=== PATIENT | female | born 1940 | race African-American/Black ===

== ENCOUNTER 2016-10-28 14:17 | Inpatient (IN) ==
[2016-10-28] MEDS ORDERED: SODIUM CHLORIDE 0.9% 1,000 ML IV STA (15:00)
[2016-10-28] MEDS ORDERED: ONDANSETRON 4 MG/2 ML VIAL IV STA (15:00)
[2016-10-28] MEDS ORDERED: fentaNYL 100 MCG/2 ML VIAL IV STA (15:01)
--- NOTE | 2016-10-28 15:24 | Emergency Department Note ---
Toro Vela Rolonda, am scribing for, and in the presence of, Benjie Justice MD 15: 01. Reshma Vela James D, MD, personally performed the services described in this documentation, ascribed by Judit Engel in my presence, and it is both accurate and complete 523 . Arrival - Arrival Chief Complaint: Abdominal / Flank Pain Stated Complaint: abd pain,vomitting ED Nursing Triage Note: c/o abd pain and n/v for over a week. Patient states that she is unable to eat. Mode of Arrival: Ambulatory Limitations: No Limitations Source: Patient, Old Records Reviewed, RN Notes Reviewed Time Seen by Provider: 10/28/16 14:55 - History of Present Illness HPI Narrative: Pt is a 75 y/o female who presents to the ED with c/o right sided abdomen pain with an onset of weeks ago. Pt has PMHx of HTN. Pt states that she cannot eat or drink. She states that everything she tries to eat gets lodged in her mid abdomen and she vomits. Pt states that her mouth is dry and that she has only been eating chicken broth which she vomits as well. No other complaint/pain in ED. Onset (ago): week(s) Consistency: constant Severity: mild, moderate Severity scale (1-10): 4 Allergies/Adverse Reactions: Allergies Allergy/AdvReac Type Severity Reaction Status Date / Time aspirin Allergy RASH Verified 10/28/16 14:35 codeine Allergy Difficulty Verified 10/28/16 14:35 Breathing Sulfa (Sulfonamide Allergy Difficulty Verified 10/28/16 14:35 Antibiotics) Breathing Home Medications: Home Medications Medication Instructions Recorded Confirmed Type Gabapentin Cap/Tab [Neurontin 300 mg PO DAILY 01/17/15 03/06/15 History Cap/Tab] Lisinopril [Zestril] 40 mg PO DAILY 01/17/15 03/06/15 History Pantoprazole Tab [Protonix Tab] 40 mg PO DAILY 01/17/15 03/06/15 History Promethazine Tab [Phenergan Tab] 25 mg PO Q6H 01/17/15 03/06/15 History Ranitidine Tab [Zantac Tab] 150 mg PO BID 01/17/15 03/06/15 History amLODIPine [Norvasc] 10 mg PO DAILY 01/17/15 03/06/15 History Review of System - Review of System 12 point system: reviewed and no additional remarkable complaints except as stated - Review of System Constitutional: Absent: chills Eyes: Absent: discharge Head/Ears/Nose/Throat: Absent: earache Respiratory: Absent: cough Cardiovascular: Absent: chest pain Gastrointestinal: Present: abdominal pain, vomiting Genitourinary female: Absent: dysuria Musculoskeletal: Absent: arm pain Skin: Absent: rash Neurological: Absent: headache Psychiatric: Absent: anxiety Endocrine: Absent: cold intolerance Hematological/Lymphatic: Absent: easy bleeding Allergic/Immunologic: Absent: facial swelling Medical,Surgical,& Family Hx - Medical History Cardio: History of: Hypertension Psychological: History of: Anxiety Disorders Neurology: No history of: Seizures Genitourinary: History of: Bladder Problem, Recurring Urinary Tract Infections Gastrointestinal: History of: GERD, GI Problems (SPHINCTER OF ODDI DYSFUNCTION) No history of: Hepatitis, Liver Problems Musculoskeletal: History of: Back/Neck Problems (LOWER BACK), Musculoskeletal Problems (ARTHRITIS) Hematology: No history of: Anemia Other: No history of: Anesthesia Reactions, Cancer - Surgical History Cardiac Surgeries: Patient Denies: Cardiac Catheterization HEENT Surgeries: Surgical HX of: Tonsilectomy & Adenoidectomy Abdominal Surgeries: Surgical HX of: Cholecystectomy, EGD Reproductive Surgeries: Surgical HX of;: Genitourinary Surgery (BLADDER TACK), Hysterectomy Orthopedic Surgeries: Surgical HX of;: Orthopedic Surgery (BACK SURGERY X 2), Total Knee Replacement (RIGHT) Patient denies;: Total Hip Replacement - Family History Family History: Denies;: Family Cancer - Social History Smoking Status: Never smoker Frequency of Alcohol Use: None Type of Drug Use: None Exam Vital Signs: Vital Signs Temperature 98.9 F 10/28/16 14:46 Pulse Rate 79 10/28/16 14:46 Respiratory Rate 18 10/28/16 14:46 Blood Pressure 197/126 10/28/16 14:46 O2 Sat by Pulse Oximetry 96 10/28/16 14:32 GENERAL: This is a well-nourished well-developed white female in no apparent distress. VITAL SIGNS: Reviewed HEENT: Head is atraumatic and normocephalic. Pupils are equal round react to light. Extraocular movements are intact. Oropharynx is benign with dry mucous membranes. NECK: Neck is soft and supple without tenderness. There are no masses. There is no lymphadenopathy. LUNGS: Lungs are clear to auscultation. Chest rises symmetrically. There is no chest wall tenderness. CV: Heart is regular rate and rhythm without murmurs rubs or gallops. ABDOMEN: Abdomen is soft, nontender to palpation. There are no abdominal abnormal masses palpated. There is no organomegaly. Bowel sounds are present and active. SKIN: Skin is warm and dry. No rash. EXTREMITIES: Patient has full range of motion without tenderness. There is no pedal edema. NEUROLOGIC: Awake alert and oriented 4. Cranial nerves II through XII are grossly intact. Motor is 5 over 5 in all extremities bilaterally. Course - Consultations Consultation #1: Discussed with hospitalist. Patient will be admitted to their service. Time: 16:00 Results - Labs CBC & BMP: 10/28/16 15:16 10/28/16 15:16 Lab Results: I have reviewed the patients labs - Diagnostic Findings Procedure: Abdominal x-ray: image reviewed by me (Nonspecific gas pattern, no free air.), Chest x-ray: image reviewed by me (No infiltrates, no pleural effusions.) Disposition Clinical Impression: Distal esophageal dysphagia Case discussed with: patient, patient's family Disposition: Still a Patient Condition: Stable
[2016-10-28 15:25] LABS: Basophils % 0.2 % (0.0-0.8); Eosinophils # 0.4 10*3/uL (0.0-0.87); Eosinophils % 5.6 % (0.00-10.9); Hematocrit 43.2 VOL% (35.7-47.0); Immature Granulocytes % 0.3 %; Immature Granulocytes Absolute 0.02 #; Lymphocytes # 1.9 10*3/uL (1.4-4.0); Lymphocytes % 31.1 % (21.3-54.2); Mean Corpuscular HGB Conc 34.7 GM/DL (32-36); Mean Corpuscular Hemoglobin 30 PG (27-34); Mean Platelet Volume 10.7 FL (9.6-12.0); Monocytes # 0.5 10*3/uL (0.11-0.8); Monocytes % 7.9 % (1.7-12.7); Neutrophils # 3.4 10*3/uL (1.4-7.4); Neutrophils % 54.9 % (38.7-73.9); Platelet Count 182 T/CUMM (130-400); Red Blood Count 5.08 MC/CUMM (3.8-5.5); Red Cell Distribution Width 13.4 % (9.3-17.3); White Blood Count 6.2 T/CUMM (4-12)
[2016-10-28] MEDS ORDERED: ONDANSETRON 4 MG/2 ML VIAL ONE (15:29)
[2016-10-28] MEDS ORDERED: fentaNYL 100 MCG/2 ML VIAL ONE (15:30)
--- NOTE | 2016-10-28 15:30 | XRay Report ---
EXAM: XR abdomen 2V CLINICAL INDICATION: Abdominal Pain COMPARISON: None Findings: No gastric distention. [No abnormally dilated small bowel loops are identified to suggest obstruction. No free intraperitoneal air.] Cholecystectomy. Visceral shadows are normal. No abnormal focal soft tissue masses or calcific densities identified in the abdomen or pelvis. IMPRESSION: No acute radiographic abnormality in the abdomen. PROCEDURE INTERPRETED AT [facility] DEPARTMENT OF RADIOLOGY Final Report Signed by: Leoncio Choudhary
--- NOTE | 2016-10-28 15:31 | XRay Report ---
Portable chest October 28, 2016 at 1522 hours Indication: Diffuse pain Comparison: Not available Findings: Cardiomediastinal contours are normal. Lungs are clear bilaterally. No acute osseous abnormalities. Visualized upper abdomen demonstrates no acute pathology. Impression: Normal chest PROCEDURE INTERPRETED AT [facility] DEPARTMENT OF RADIOLOGY Final Report Signed by: Leoncio Choudhary
[2016-10-28 15:56] LABS: Albumin 3.9 G/DL (3.4-5.0); Bilirubin,Total 0.5 MG/DL (0.2-1.0); Calcium 10.1 MG/DL (8.5-10.1); Osmolality,Calculated 280.3 MOS/KG (273-304); Potassium 4.3 MMOL/L (3.5-5.1); Total Protein 8.7 G/DL (6.4-8.3)
--- NOTE | 2016-10-28 16:44 | Hospitalist History & Physical ---
Assessment and Plan - Time spent with patient Time spent with patient: Greater than 30 minutes (1) Dysphagia Status: Acute Assessment and plan: 10/28/16 Admit -start IV hydration -PRN antiemetics -Consult GI -monitor repeat labs -will discuss with Dr Kapadia for further recommendations of care Current Visit: No (2) Nausea vomiting and diarrhea Status: Acute Assessment and plan: 10/28/16 Admit- PRN anti-emetics and monitor Current Visit: Yes History of Present Illness Chief complaint: N/V/D and abdominal pain History of present illness: Ms. Gant is a 75 year old black female w/PMHx of hypertension, anxiety, recurrent UTI, GERD, Chronic back/neck pain, arthritis, and Stricture dilatation presented to the ED for further evaluation of epigastric abdominal pain, nausea/vomiting x 2-3 days and diarrhea that started last night. She reports that she hasn't been able to take any solids foods for about 10 days and now liquids are causing her to become very nauseated with associated vomiting. She denies any recent treatments that required antibiotic therapy. She denies any bright red blood or dark tarry stools. Denies any bright red bleeding in vomitus. Denies shortness of breath, chest pain, fever or chills. IN ED: ABD xray: nothing acute. CXR; normal chest. LABS significant: AST 50, Glucose 150. H&H: stable and Electrolytes within normal range. Hospital Services consulted for further evaluation. She denies smoking, alcohol use or illicit drug use. Noted on 03/09/15 Dr Haynes performed an EGD: with noted moderate hiatal hernia, gastroesophageal reflux disease and esophageal stricture treated with dilatation. PCP: Dr Lopez (in [place]) GI: Dr Haynes performed EGD last admission 03/09/16 Pain Mangement: Dr Sanz Home Medications Medication Instructions Recorded Confirmed Type Gabapentin Cap/Tab [Neurontin 300 mg PO DAILY 01/17/15 03/06/15 History Cap/Tab] Lisinopril [Zestril] 40 mg PO DAILY 01/17/15 03/06/15 History Pantoprazole Tab [Protonix Tab] 40 mg PO DAILY 01/17/15 03/06/15 History Promethazine Tab [Phenergan Tab] 25 mg PO Q6H 01/17/15 03/06/15 History Ranitidine Tab [Zantac Tab] 150 mg PO BID 01/17/15 03/06/15 History amLODIPine [Norvasc] 10 mg PO DAILY 01/17/15 03/06/15 History Allergies Allergy/AdvReac Type Severity Reaction Status Date / Time aspirin Allergy RASH Verified 10/28/16 14:35 codeine Allergy Difficulty Verified 10/28/16 14:35 Breathing Sulfa (Sulfonamide Allergy Difficulty Verified 10/28/16 14:35 Antibiotics) Breathing Medical,Surgical,& Family Hx - Medical History Cardio: History of: Hypertension Psychological: History of: Anxiety Disorders Neurology: No history of: Seizures Genitourinary: History of: Bladder Problem, Recurring Urinary Tract Infections Gastrointestinal: History of: GERD, GI Problems (SPHINCTER OF ODDI DYSFUNCTION) No history of: Hepatitis, Liver Problems Musculoskeletal: History of: Back/Neck Problems (LOWER BACK), Musculoskeletal Problems (ARTHRITIS) Hematology: No history of: Anemia Other: No history of: Anesthesia Reactions, Cancer - Surgical History Cardiac Surgeries: Patient Denies: Cardiac Catheterization HEENT Surgeries: Surgical HX of: Tonsilectomy & Adenoidectomy Abdominal Surgeries: Surgical HX of: Cholecystectomy, EGD (with stricture dilatation) Reproductive Surgeries: Surgical HX of;: Genitourinary Surgery (BLADDER TACK), Hysterectomy Orthopedic Surgeries: Surgical HX of;: Orthopedic Surgery (BACK SURGERY X 2), Total Knee Replacement (RIGHT) Patient denies;: Total Hip Replacement - Family History Family History: Reports;: Family Diabetes (father), Family Heart Disease ( father and sister - [place]), Family Hypertension (Dad and mother) Denies;: Family Cancer - Social History Smoking Status: Never smoker Frequency of Alcohol Use: None Type of Drug Use: None Marital Status: Single Lives With:: Grandson lives with her Functional capacity: uses cane/walker 12 point system: reviewed and no additional remarkable complaints except as stated - Constitutional Constitutional: Present: weakness. Absent: anorexia, fever(s) - EENT Nose, mouth and throat: Present: dysphagia. Absent: headache(s), nasal congestion - Cardiovascular Cardiovascular: Absent: chest pain at rest, chest pain with activity, edema - Respiratory Respiratory: Absent: dyspnea, wheezing - Gastrointestinal Gastrointestinal: Present: abdominal pain, diarrhea, dysphagia, nausea, vomiting. Absent: coffee ground emesis, constipation, hematemesis - Genitourinary Genitourinary: Absent: difficulty urinating, dysuria, flank pain, hematuria - Psychiatric Psychiatric: Absent: confusion Exam - Constitutional Vitals: Period Temp Pulse Resp BP Sys/Jose Pulse Ox Last 24 Hr 98.9 F-98.9 F 79-79 18-18 197-197/126-126 96 General appearance: normal weight, no acute distress - Head Head exam: Present: normal inspection - Eye Eye exam: Present: EOMI Pupils: Present: YANNA - Neck Neck exam: Present: normal inspection. Absent: thyromegaly - Respiratory Respiratory exam: Present: clear to auscultation bilaterally. Absent: stridor, wheezes - Cardiovascular Cardiovascular exam: Present: regular rate and rhythm - GI/Abdominal GI/Abdominal exam: Present: normal bowel sounds, soft. Absent: rebound - Extremities Exam Extremities exam: Present: normal inspection, full ROM. Absent: edema - Neurological Exam Neurological exam: Present: alert, oriented X3, CN II-XII intact - Psychiatric Psychiatric exam: Present: normal affect, normal mood. Absent: agitated, anxious - Skin Skin exam: Present: normal color, warm, dry Results - Labs CBC & BMP: 10/28/16 15:16 10/28/16 15:16 Lab Results: I have reviewed the past 24 hour labs
[2016-10-28 16:48] LABS: Apearance,Urine CLEAR (Clear); Bacteria,Urine Occasional /HPF (Few); Bilirubin,Urine Negative (Negative); Blood, Urine Negative (Negative); Glucose,Urine (UA) Negative (Negative); Ketones,Urine Negative (Negative); Nitrite,Urine Negative (Negative); Protein,Urine Negative; RBC,Urine 2 /HPF (0-4); Urine Color Straw (Yellow); Urine Specific Gravity 1.004 (1.001-1.035); Urine Urobilinogen < 2.0 EU/DL (0.2-1.0); WBC,Urine 5 /HPF (0-6)
[2016-10-28] MEDS ORDERED: ACETAMINOPHEN 325 MG TABLET PO PRN (17:53)
[2016-10-28] MEDS ORDERED: PROMETHAZINE 25 MG/1 ML VIAL IM PRN (17:53)
[2016-10-28] MEDS: SODIUM CHLORIDE 0.9% 1,000 ML IV SCH (18:26)
[2016-10-28] MEDS: hydrALAZINE 20 MG/1 ML VIAL IV PRN (18:29)
[2016-10-28] MEDS ORDERED: ENALAPRIL 2.5 MG/2 ML VIAL IV PRN (19:12)
[2016-10-28] MEDS ORDERED: cloNIDine 0.3 MG/24 HR PATCH TRANSDERM SCH (19:30)
[2016-10-28] MEDS: HYDROmorphone 2 MG/1 ML VIAL IV PRN (19:45)
[2016-10-28] MEDS: ONDANSETRON 4 MG/2 ML VIAL IV PRN (19:45)
[2016-10-29] MEDS: SODIUM CHLORIDE 0.9% 1,000 ML IV SCH ×3 (02:46→18:06)
[2016-10-29] MEDS: ONDANSETRON 4 MG/2 ML VIAL IV PRN ×3 (02:46→19:21)
[2016-10-29] MEDS: HYDROmorphone 2 MG/1 ML VIAL IV PRN ×2 (02:46→08:43)
[2016-10-29] MEDS: hydrALAZINE 20 MG/1 ML VIAL IV PRN (06:37)
[2016-10-29 07:29] LABS: Basophils % 0.3 % (0.0-0.8); Eosinophils # 0.2 10*3/uL (0.0-0.87); Eosinophils % 3.2 % (0.00-10.9); Hematocrit 42.8 VOL% (35.7-47.0); Hemoglobin 14.2 GM/DL (12.0-16.0); Immature Granulocytes % 0.2 %; Immature Granulocytes Absolute 0.01 #; Lymphocytes # 1.6 10*3/uL (1.4-4.0); Lymphocytes % 25.7 % (21.3-54.2); Mean Corpuscular HGB Conc 33.2 GM/DL (32-36); Mean Corpuscular Hemoglobin 29 PG (27-34); Mean Corpuscular Volume 86.5 FL (87-102); Mean Platelet Volume 10.9 FL (9.6-12.0); Monocytes # 0.6 10*3/uL (0.11-0.8); Monocytes % 9.4 % (1.7-12.7); Neutrophils # 3.8 10*3/uL (1.4-7.4); Neutrophils % 61.2 % (38.7-73.9); Platelet Count 222 T/CUMM (130-400); Red Blood Count 4.95 MC/CUMM (3.8-5.5); Red Cell Distribution Width 13.7 % (9.3-17.3); White Blood Count 6.3 T/CUMM (4-12)
[2016-10-29 08:07] LABS: Calcium 9.4 MG/DL (8.5-10.1); Magnesium 1.9 MG/DL (1.8-2.4); Potassium 2.7 MMOL/L (3.5-5.1)
[2016-10-29] MEDS: PANTOPRAZOLE 40 MG VIAL IV SCH (08:43)
--- NOTE | 2016-10-29 10:05 | Gastrointestinal Consult Note ---
Assessment and Plan (1) Dysphagia Status: Acute Assessment and plan: 10/29-complaints of epigastric abdominal pain with nausea and vomiting worsening of the last several days with history of dysphagia and esophageal stricture in the past. Patient recalls similar presentation to her prior episodes of dysphagia in the past. EGD in 2016 noted with GERD and esophageal dilation. Tentative plan for EGD tomorrow to further evaluate. Plan an addendum to follow by Dr. Haynes. Current Visit: No History of Present Illness Chief complaint: Dysphagia, nausea vomiting History of present illness: Ms. Gant is a 75 year old female who was admitted to the hospital on yesterday with onset of nausea, vomiting, diarrhea and abdominal pain. Patient has a prior history of hypertension, GERD, chronic pain and anxiety. Patient is a fairly good historian therefore information obtained from patient interview as well as chart review. Patient was admitted on yesterday with complaints of dysphagia which has worsened over the last several days. She also states that she has had onset of nausea with vomiting/regurgitation with eating. She states that at this time nothing wall go down when she swallows therefore this is caused her to have these recent episodes of nausea vomiting. She also states that she did have some diarrhea which started a couple of days ago however this is improved at this time. She denies any melena or hematochezia. She denies any coffee-ground emesis or hematemesis. She denies any fever or chills. She denies any recent weight loss. She states that approximately a month ago her symptoms did begin to worsen and she was sent to see Dr. Jewell in [place] for this however once he realized that she is a patient of Dr. Haynes, an appointment was made for November [address] Haynes. Patient has a prior history of hiatal hernia, GERD and esophageal stricture with dilation with the most recent EGD done in February 2015. Patient states that the symptoms feel very similar to her prior histories of dysphagia in the past she has had good results from her dilations. She is also noted to have a history of sphincter of Yandel dysfunction with ERCP in the past with normal LFTs. Abdominal x-ray on admission showed no acute findings. She denies any NSAID use. Home Medications Medication Instructions Recorded Confirmed Type Lisinopril [Zestril] 40 mg PO DAILY 01/17/15 10/28/16 History Promethazine Tab [Phenergan Tab] 25 mg PO Q6H 01/17/15 10/28/16 History Ranitidine Tab [Zantac Tab] 150 mg PO BID 01/17/15 10/28/16 History amLODIPine [Norvasc] 10 mg PO DAILY 01/17/15 10/28/16 History Carvedilol [Coreg] 3.125 mg PO BID 10/28/16 10/28/16 History Oxybutynin Xl [Ditropan Xl] 15 mg PO DAILY 10/28/16 10/28/16 History Potassium Chloride 40 meq PO BID 10/28/16 10/28/16 History Tizanidine HCl 4 mg PO BID PRN 10/28/16 10/28/16 History Allergies Allergy/AdvReac Type Severity Reaction Status Date / Time aspirin Allergy RASH Verified 10/28/16 14:35 codeine Allergy Difficulty Verified 10/28/16 14:35 Breathing Sulfa (Sulfonamide Allergy Difficulty Verified 10/28/16 14:35 Antibiotics) Breathing Medical,Surgical,& Family Hx - Medical History Cardio: History of: Hypertension Psychological: History of: Anxiety Disorders Neurology: No history of: Seizures Genitourinary: History of: Bladder Problem, Recurring Urinary Tract Infections Gastrointestinal: History of: GERD, GI Problems (SPHINCTER OF ODDI DYSFUNCTION) No history of: Hepatitis, Liver Problems Musculoskeletal: History of: Back/Neck Problems (LOWER BACK), Musculoskeletal Problems (ARTHRITIS) Hematology: No history of: Anemia Other: No history of: Anesthesia Reactions, Cancer - Surgical History Cardiac Surgeries: Patient Denies: Cardiac Catheterization HEENT Surgeries: Surgical HX of: Tonsilectomy & Adenoidectomy Abdominal Surgeries: Surgical HX of: Cholecystectomy, EGD (with stricture dilatation) Reproductive Surgeries: Surgical HX of;: Genitourinary Surgery (BLADDER TACK), Hysterectomy Orthopedic Surgeries: Surgical HX of;: Orthopedic Surgery (BACK SURGERY X 2), Total Knee Replacement (RIGHT) Patient denies;: Total Hip Replacement - Family History Family History: Reports;: Family Diabetes (father), Family Heart Disease ( father and sister - [place]), Family Hypertension (Dad and mother) Denies;: Family Anesthesia Reaction, Family Cancer, Family Hematology, Family Psychiatric Problems, Family Stroke, Additional Family History - Social History Smoking Status: Never smoker Frequency of Alcohol Use: None Type of Drug Use: None 12 point system: reviewed and no additional remarkable complaints except as stated - Constitutional Constitutional: Present: as per HPI - EENT Eyes: Present: as per HPI Ears: Present: as per HPI Nose, mouth and throat: Present: as per HPI, dysphagia - Cardiovascular Cardiovascular: Present: as per HPI - Respiratory Respiratory: Present: as per HPI - Gastrointestinal Gastrointestinal: Present: as per HPI, diarrhea, nausea, vomiting - Genitourinary Genitourinary: Present: as per HPI - Musculoskeletal Musculoskeletal: Present: as per HPI - Neurological Neurological: Present: as per HPI - Psychiatric Psychiatric: Present: as per HPI - Endocrine Endocrine: Present: as per HPI - Hematologic/Lymphatic Hematologic/Lymphatic: Present: as per HPI Exam - Constitutional Vitals: Period Temp Pulse Resp BP Sys/Jose Pulse Ox Last 24 Hr 98.0 F-99.1 F 69-79 18-20 161-208/58-126 91-96 General appearance: normal weight, no acute distress - Head Head exam: Present: normal inspection, normocephalic - Eye Eye exam: Present: other (Lids and conjunctive are unremarkable). Absent: scleral icterus - ENT ENT exam: Present: normal exam, normal oropharynx - Neck Neck exam: Present: normal inspection - Respiratory Respiratory exam: Present: clear to auscultation bilaterally. Absent: rales, rhonchi, wheezes - Cardiovascular Cardiovascular exam: Present: regular rate and rhythm. Absent: diastolic murmur , JVD, systolic murmur - GI/Abdominal GI/Abdominal exam: Present: normal bowel sounds, soft. Absent: ascites, distended, mass, organomegaly, tenderness - Extremities Exam Extremities exam: Present: normal inspection, full ROM - Back Exam Back exam: Present: normal inspection - Neurological Exam Neurological exam: Present: alert, oriented X3 - Psychiatric Psychiatric exam: Present: normal affect, normal mood - Skin Skin exam: Present: normal color, warm, dry Results - Labs CBC & BMP: 10/29/16 06:43 10/29/16 06:43 Lab Results: I have reviewed the past 24 hour labs
--- NOTE | 2016-10-29 10:26 | Hospitalist Progress Note ---
Assessment and Plan - Time spent with patient Time spent with patient: Less than 30 minutes (1) Hypertension Status: Acute Assessment and plan: 75-year-old -[place] female with history of hypertension, GERD, chronic pain, and anxiety admitted by the hospitalist service on 10/28/2016 with nausea, vomiting, diarrhea, and dysphagia along with hypertensive urgency. Dr. Smith will see and examine patient and further recommendations to follow. Hypertensive urgency--blood pressure still elevated at 185/72. She is currently on clonidine, enalapril, and hydralazine. These are all IV medications since patient cannot tolerate swallowing her pills due to nausea and dysphasia at this time. What she can tolerate swallowing will restart her home medications. Chronic pain--patient states she sees Dr. Sanz he her home medicines have not been restarted. I do not see anything on her home medications that are for chronic pain. She does have IV Dilaudid as needed for pain. NVD/dysphagia--GI has been consulted and have seen the patient. She has seen Dr. Haynes in the past and her most recent EGD was done in February 2015. She had an esophageal stricture with dilation done at that time. Current Visit: Yes (2) GERD (gastroesophageal reflux disease) Status: Acute Current Visit: Yes (3) Chronic pain Status: Acute Current Visit: Yes (4) History of anxiety Status: Acute Current Visit: Yes (5) Dysphagia Status: Acute Current Visit: No (6) Nausea vomiting and diarrhea Status: Acute Current Visit: Yes Hospitalist: Subjective Interval history: Ms. Gant has no complaints this morning other than she is not received her normal medications from her chronic pain. She is having some nausea but no vomiting and epigastric pain with palpation. Exam - Constitutional Vitals: Period Temp Pulse Resp BP Sys/Jose Pulse Ox Last 24 Hr 98.0 F-99.1 F 69-79 18-20 161-208/58-126 91-96 Exam: Constitutional System: Now distress. No tremulousness. Head: Normocephalic, atraumatic. Ears, Nose and Throat System: No evidence of Otitis or Mastoiditis. No epistaxis or discharge Eyes System: Pupils equal, round, and reactive. Extraocular muscles intact. Neck: Supple, without adenopathy, No jugular venous distention. No thyromegaly, neck mass, or prior surgery apparent. Respiratory System: Chest clear to auscultation. Cardiovascular System: Heart with regular rate and rhythm. No murmur. GI System: Abdomen soft, mildly tender epigastric region. Normo active bowel sounds present. Musculoskeletal System: limbs with no pedal edema. Diminished distal pulses. Neurological System: No discernable sensory deficit. No aphasia Psychiatric System: Conversation is rational Results - Labs CBC & BMP: 10/29/16 06:43 10/29/16 06:43 Lab Results: I have reviewed the past 24 hour labs
[2016-10-29] MEDS: POTASSIUM CHLORIDE RIDER 10 MEQ in PREMIX 1 EACH IV SCH ×5 (12:34→23:27)
--- NOTE | 2016-10-29 16:01 | Pain Management Consult Note ---
Assessment and Plan (1) Lumbar spondylosis Status: Acute Assessment and plan: Patient is stable as far as her lumbar spondylosis is concerned. I will go ahead and restart her Percocet 10 3 times per day as needed for pain Current Visit: Yes History of Present Illness Chief complaint: Abdominal pain right hip and right leg pain History of present illness: Ms. Gant is a 75 year old female Patient is well-known to me with history of lumbar spondylosis and chronic use of Percocet 10 3 times per day for pain. Patient is admitted for epigastric pain and workup is being done. I have been requested to evaluate to see if we can restart her Percocet back Home Medications Medication Instructions Recorded Confirmed Type Lisinopril [Zestril] 40 mg PO DAILY 01/17/15 10/28/16 History Promethazine Tab [Phenergan Tab] 25 mg PO Q6H 01/17/15 10/28/16 History Ranitidine Tab [Zantac Tab] 150 mg PO BID 01/17/15 10/28/16 History amLODIPine [Norvasc] 10 mg PO DAILY 01/17/15 10/28/16 History Carvedilol [Coreg] 3.125 mg PO BID 10/28/16 10/28/16 History Oxybutynin Xl [Ditropan Xl] 15 mg PO DAILY 10/28/16 10/28/16 History Potassium Chloride 40 meq PO BID 10/28/16 10/28/16 History Tizanidine HCl 4 mg PO BID PRN 10/28/16 10/28/16 History Allergies Allergy/AdvReac Type Severity Reaction Status Date / Time aspirin Allergy RASH Verified 10/28/16 14:35 codeine Allergy Difficulty Verified 10/28/16 14:35 Breathing Sulfa (Sulfonamide Allergy Difficulty Verified 10/28/16 14:35 Antibiotics) Breathing Medical,Surgical,& Family Hx - Medical History Cardio: History of: Hypertension Psychological: History of: Anxiety Disorders Neurology: No history of: Seizures Genitourinary: History of: Bladder Problem, Recurring Urinary Tract Infections Gastrointestinal: History of: GERD, GI Problems (SPHINCTER OF ODDI DYSFUNCTION) No history of: Hepatitis, Liver Problems Musculoskeletal: History of: Back/Neck Problems (LOWER BACK), Musculoskeletal Problems (ARTHRITIS) Hematology: No history of: Anemia Other: No history of: Anesthesia Reactions, Cancer - Surgical History Cardiac Surgeries: Patient Denies: Cardiac Catheterization HEENT Surgeries: Surgical HX of: Tonsilectomy & Adenoidectomy Abdominal Surgeries: Surgical HX of: Cholecystectomy, EGD (with stricture dilatation) Reproductive Surgeries: Surgical HX of;: Genitourinary Surgery (BLADDER TACK), Hysterectomy Orthopedic Surgeries: Surgical HX of;: Orthopedic Surgery (BACK SURGERY X 2), Total Knee Replacement (RIGHT) Patient denies;: Total Hip Replacement - Family History Family History: Reports;: Family Diabetes (father), Family Heart Disease ( father and sister - MS), Family Hypertension (Dad and mother) Denies;: Family Anesthesia Reaction, Family Cancer, Family Hematology, Family Psychiatric Problems, Family Stroke, Additional Family History - Social History Smoking Status: Never smoker Frequency of Alcohol Use: None Type of Drug Use: None 12 point system: reviewed and no additional remarkable complaints except as stated Exam - Constitutional Vitals: Period Temp Pulse Resp BP Sys/Jose Pulse Ox Last 24 Hr 98.0 F-99.3 F 69-77 14-20 161-208/58-90 91-97 General appearance: no acute distress - Head Head exam: Present: normal inspection - Eye Eye exam: Present: EOMI Pupils: Present: YANNA - ENT ENT exam: Present: normal exam Ear exam: Present: intact Mouth exam: Present: normal external inspection - Neck Neck exam: Present: normal inspection - Respiratory Respiratory exam: Present: clear to auscultation bilaterally - Cardiovascular Cardiovascular exam: Present: RRR - GI/Abdominal GI/Abdominal exam: Present: tenderness - Extremities Exam Extremities exam: Present: normal inspection - Back Exam Back exam: Present: vertebral tenderness - Neurological Exam Neurological exam: Present: alert, oriented X3, normal gait - Skin Skin exam: Present: normal color Results - Labs CBC & BMP: 10/29/16 06:43 10/29/16 06:43 Lab Results: I have reviewed the past 24 hour labs
[2016-10-29] MEDS: oxyCODONE/ACETAMINOPHEN 5-325 MG TABLET PO PRN ×2 (16:19→22:18)
[2016-10-29] MEDS: LISINOPRIL 20 MG TABLET PO SCH (18:05)
[2016-10-29] MEDS: amLODIPine 10 MG TABLET PO SCH (18:06)
[2016-10-29] MEDS: CARVEDILOL 3.125 MG TABLET PO SCH (22:18)
[2016-10-30] MEDS: POTASSIUM CHLORIDE RIDER 10 MEQ in PREMIX 1 EACH IV SCH (00:57)
[2016-10-30] MEDS: SODIUM CHLORIDE 0.9% 1,000 ML IV SCH ×2 (02:06→09:22)
[2016-10-30] MEDS: hydrALAZINE 20 MG/1 ML VIAL IV PRN (06:04)
--- NOTE | 2016-10-30 06:12 | Pain Management Progress Note ---
Assessment and Plan (1) Lumbar spondylosis Status: Acute Assessment and plan: Patient is stable as far as her lumbar spondylosis is concerned. I will go ahead and restart her Percocet 10 3 times per day as needed for pain 10/30 I recommend to continue current medications for pain at this time Current Visit: Yes Pain - Subjective Interval history: The patient reports that the right hip and lower back pain is better since restarting the Percocet. However still complaining of some epigastric pain and discomfort. Patient is scheduled to be seen again by GI this morning Exam - Constitutional Vitals: Period Temp Pulse Resp BP Sys/Jose Pulse Ox Last 24 Hr 98.0 F-99.3 F 70-77 14-20 172-201/69-82 94-97 General appearance: no acute distress - Head Head exam: Present: normal inspection - Eye Eye exam: Present: EOMI Pupils: Present: YANNA - ENT ENT exam: Present: normal exam Ear exam: Present: intact Mouth exam: Present: normal external inspection - Neck Neck exam: Present: normal inspection - Respiratory Respiratory exam: Present: clear to auscultation bilaterally - Cardiovascular Cardiovascular exam: Present: RRR - GI/Abdominal GI/Abdominal exam: Present: tenderness, soft - Extremities Exam Extremities exam: Present: normal inspection - Back Exam Back exam: Present: vertebral tenderness - Neurological Exam Neurological exam: Present: alert, oriented X3, abnormal gait - Skin Skin exam: Present: normal color Results - Labs CBC & BMP: 10/29/16 06:43 10/30/16 05:36 Lab Results: I have reviewed the past 24 hour labs
[2016-10-30] MEDS ORDERED: POTASSIUM CHLORIDE RIDER 100 ML IV PRN (07:36)
[2016-10-30] MEDS: POTASSIUM CHLORIDE RIDER 10 MEQ in PREMIX 1 EACH IV PRN ×5 (07:52→12:15)
[2016-10-30] MEDS: amLODIPine 10 MG TABLET PO SCH (09:25)
[2016-10-30] MEDS: CARVEDILOL 3.125 MG TABLET PO SCH (09:25)
[2016-10-30] MEDS: LISINOPRIL 20 MG TABLET PO SCH (09:25)
[2016-10-30] MEDS: PANTOPRAZOLE 40 MG VIAL IV SCH (10:39)
[2016-10-30] MEDS ORDERED: PROPOFOL 200 MG/20 ML VIAL IV ONE (10:56)
[2016-10-30] MEDS ORDERED: LIDOCAINE 1% 5 ML VIAL ONE (10:56)
--- NOTE | 2016-10-30 11:00 | History and Physical Update ---
History and Physical Update - Physical Exam Mental Status: alert and oriented Heart: regular rate and rhythm Lung: clear to auscultation Abdomen: within normal limits Vitals: within normal limits
--- NOTE | 2016-10-30 11:06 | Operative Note ---
Date of procedure: 10/30/16 Pre-op diagnosis: Dysphagia Procedure: EGD with esophageal dilatation 75-year-old female with complaints of dysphagia now for EGD and dilatation. She had previous dilatation approximately a year ago. Informed symptoms obtained the patient. She was sedated with MAC anesthesia per anesthesia protocol. Patient was placed in left lateral decubitus position the Olympus flexible video upper endoscope was inserted into the oral cavity under direct vision the esophagus was intubated. Findings: Esophagus-normal proximal mid esophageal mucosa distal esophagus with moderate hiatal hernia distal esophageal stricture Stomach-normal insufflation normal mucosa to direct retroflexed views of the body fundus cardia and antrum the stomach. Pylorus-normal Duodenum-normal for the bulb duodenum to the third portion of duodenum. The scope was removed and subsequently a 54 Spanish bougie was passed without difficulty no resistance was appreciated no blood was present on the dilator. Procedure terminated placed our procedure well his discharge recovery in good condition Postop diagnosis: 1. Gastroesophageal reflux disease-continue antireflux precautions and acid suppressive therapy 2. Esophageal stricture-repeat dilatation on as-needed basis. Anesthesia: MAC Surgeon / Physician: Dick Haynes Estimated blood loss: none Specimens: none sent Condition: stable Disposition: post procedure unit Results - Labs CBC & BMP: 10/29/16 06:43 10/30/16 09:47 Discharge Plan - Discharge Medications No Action Ranitidine Tab [Zantac Tab] 150 mg PO BID Promethazine Tab [Phenergan Tab] 25 mg PO Q6H amLODIPine [Norvasc] 10 mg PO DAILY Lisinopril [Zestril] 40 mg PO DAILY Oxybutynin Xl [Ditropan Xl] 15 mg PO DAILY Tizanidine HCl 4 mg PO BID PRN PRN Reason: muscle spasms Carvedilol [Coreg] 3.125 mg PO BID Potassium Chloride 40 meq PO BID - Follow Up or Referral - Forms/Instructions
--- NOTE | 2016-10-30 11:17 | Anesthesia Post-Op ---
Anesthesia Post OP - Post Ansesthetic Evaluation Patient seen in post op: Yes Resp: within normal limits CV: within normal limits Mental: within normal limits Temp: within normal limits [id number]: within normal limits Nausea and Vomiting: within normal limits Pain: within normal limits
[2016-10-30] MEDS ORDERED: OXYBUTYNIN XL 15 MG TABLET PO SCH (11:30)
[2016-10-30] MEDS ORDERED: LISINOPRIL 40 MG PO SCH (11:30)
--- NOTE | 2016-10-30 11:56 | Hospitalist Progress Note ---
Assessment and Plan - Time spent with patient Time spent with patient: Less than 30 minutes (1) Hypertension Status: Acute Assessment and plan: 75-year-old -[place] female with history of hypertension, GERD, chronic pain, and anxiety admitted by the hospitalist service on 10/28/2016 with nausea, vomiting, diarrhea, and dysphagia along with hypertensive urgency. Dr. Smith will see and examine patient and further recommendations to follow. Hypertensive urgency--blood pressure still elevated at 185/72. She is currently on clonidine, enalapril, and hydralazine. These are all IV medications since patient cannot tolerate swallowing her pills due to nausea and dysphasia at this time. What she can tolerate swallowing will restart her home medications. Chronic pain--patient states she sees Dr. Sanz he her home medicines have not been restarted. I do not see anything on her home medications that are for chronic pain. She does have IV Dilaudid as needed for pain. NVD/dysphagia--GI has been consulted and have seen the patient. She has seen Dr. Haynes in the past and her most recent EGD was done in February 2015. She had an esophageal stricture with dilation done at that time. 10/30/2016 patient just returned from EGD with esophageal dilation by Dr. Haynes. He recommended continuing her antireflux precautions and acid suppressive therapy she can call him for repeat dilation on an as-needed basis. Patient will be started on regular diet and see how she tolerates. Her home medicines have now been restarted for her chronic back pain and her hypertension. She is also requiring potassium supplementation. We will see how patient tolerates a diet today along with monitoring her potassium and blood pressure. Hopefully home in the a.m. Discussed with Dr. Smith. Current Visit: Yes (2) GERD (gastroesophageal reflux disease) Status: Acute Current Visit: Yes (3) Chronic pain Status: Acute Current Visit: Yes (4) History of anxiety Status: Acute Current Visit: Yes (5) Dysphagia Status: Acute Current Visit: No (6) Nausea vomiting and diarrhea Status: Acute Current Visit: Yes Hospitalist: Subjective Interval history: Patient seen before heading to EGD. She still complaining of epigastric abdominal pain. Exam - Constitutional Vitals: Period Temp Pulse Resp BP Sys/Jose Pulse Ox Last 24 Hr 98.0 F-99.3 F 68-76 12-20 115-201/69-077 94-99 Exam: Constitutional System: Now distress. No tremulousness. Head: Normocephalic, atraumatic. Ears, Nose and Throat System: No evidence of Otitis or Mastoiditis. No epistaxis or discharge Eyes System: Pupils equal, round, and reactive. Extraocular muscles intact. Neck: Supple, without adenopathy, No jugular venous distention. No thyromegaly, neck mass, or prior surgery apparent. Respiratory System: Chest clear to auscultation. Cardiovascular System: Heart with regular rate and rhythm. No murmur. GI System: Abdomen soft, mildly tender epigastric region. Normo active bowel sounds present. Musculoskeletal System: limbs with no pedal edema. Diminished distal pulses. Neurological System: No discernable sensory deficit. No aphasia Psychiatric System: Conversation is rational Results - Labs CBC & BMP: 10/29/16 06:43 10/30/16 09:47 Lab Results: I have reviewed the past 24 hour labs
[2016-10-30] MEDS ORDERED: POTASSIUM CHLORIDE 20 MEQ TABLET PO SCH (12:00)
[2016-10-30] MEDS ORDERED: tiZANidine 4 MG TABLET PO PRN (12:00)
[2016-10-30] MEDS: PROMETHAZINE 25 MG TABLET PO SCH ×2 (13:47→18:08)
[2016-10-30 16:33] VITALS: BP 160/71
--- NOTE | 2016-10-30 17:07 | Discharge Summary ---
Hospital Course - Hospital Course Hospital Course: 75 year old -[place] Island[place] female with history of hypertension, anxiety, recurrent UTI, GERD, Chronic back/neck pain, arthritis, and esophageal stricture with previous dilatation presented to the ED for further evaluation of epigastric abdominal pain, nausea/vomiting x 2-3 days and diarrhea that started last night. She reported that she hasn't been able to take any solids foods for about 10 days and now liquids are causing her to become very nauseated with associated vomiting. She was admitted to the hospital and was found to have recurrence of her esophageal stricture. GI were consulted. He has problems with hypertension being uncontrolled due to inability to take her oral medication. She was given IV medications to control blood pressure. She had problems with hypokalemia which was replaced frequently. GI performed an EGD which revealed that she had distal esophageal stricture which was dilated also has gastric reflux disease and hiatal hernia, she is on PPI. Diet has been advanced. She and family are requesting to be discharged home as she is feeling much better now. Total discharge time was about 40 minutes. - Time spent with patient Time with patient DS: Greater than 30 minutes Diagnosis - Discharge Diagnosis (1) Dysphagia Status: Resolved Discharge Plan - Discharge Data Condition at Discharge: Stable Discharge Diet: low salt diet Activity: resume usual activities as tolerated Hygiene: no restrictions Weight Bearing at Discharge: full weight bearing Driving: no restrictions Contact your physician if you experience:: Nausea/Vomiting - Discharge Medications New oxyCODONE/ACETAMINOPHEN 5-325 [Percocet 5-325] 2 tablet PO Q6H PRN tablet PRN Reason: Pain Moderate (4-7) Potassium Chloride Cap/Tab [K Dur] 20 meq PO DAILY #10 tablet Continue Ranitidine Tab [Zantac Tab] 150 mg PO BID Promethazine Tab [Phenergan Tab] 25 mg PO Q6H amLODIPine [Norvasc] 10 mg PO DAILY Lisinopril [Zestril] 40 mg PO DAILY Oxybutynin Xl [Ditropan Xl] 15 mg PO DAILY Tizanidine HCl 4 mg PO BID PRN PRN Reason: muscle spasms Carvedilol [Coreg] 3.125 mg PO BID Potassium Chloride 40 meq PO BID - Follow Up or Referral Follow Up: No PCP,. [Primary Care Provider] - 1 Week - Forms/Instructions Exam - Constitutional Vitals: Period Temp Pulse Resp BP Sys/Jose Pulse Ox Last 24 Hr 97.9 F-99.1 F 68-76 12-20 115-201/71-077 92-99 Exam: General: No Acute Distress HEENT: Normocephalic, atraumatic, Extra ocular movements intact Neck: Supple, No JVD Chest: Clear to auscultation B/L CV: S1 + S2 audible without murmur, gallop or rub Abd: soft, NT, Non-distended, BS + Ext: No edema Skin: No purpura, bruising or rash Rheumatologic: No Joint deformities Neurologic: Strength 5/5 all extremities, no gross sensory deficits Discharge Results Procedures and tests throughout hospitalization: Pending Orders 10/30/16 16:51 Potassium Routine Labs on day of discharge: Labs from last 24 hours 10/30/16 10/30/16 09:47 05:36 Potassium 3.1 L 2.8 L DS: Provider Date of admission: 10/28/16 16:13 Primary care physician: . No PCP Attending physician on admission: Anshu Kapadia MD Consults: 10/28/16 17:53 Consult to Case Mgmt/Social Srvs [CONS] Routine Reason for Case Mgmt/Social Srvs: Discharge Planning Consult to Physician [CONS] Routine Comment: Consulting Provider: Dick Haynes When should Consulting Provider be notified: Now Person Notified: Aleida Hernandez Date Notified: 10/29/16 Time Notified: 09:13 Consult Notification Comment: Admt 10/28/16: w/ Dysphagia, epigastric pain, N/V /D Noted: Patient had EGD 03/09/[address] Haynes with stricture dilatation, noted to have GERD and hiatal hernia 10/29/16 13:12 Consult to Physician [CONS] Routine Comment: can patient resume pain meds Consulting Provider: Amy Sanz Person Notified: Minerva Date Notified: 10/29/16 Time Notified: 13:56 Discharging clinician: Tanya Smith MD
[2016-10-31] MEDS ORDERED: POTASSIUM CHLORIDE 20 MEQ TABLET PO SCH (09:00)
== END 2016-10-30 18:31 | disposition home or self-care (01) | DRG 392 ==
LOC: N.ED 14:17 → N.EDINP 16:13 → SUATTDRO 16:13 → N.EDINP 17:22 → N.5E 17:51
PROVIDERS: ADMIT Internal Medicine; ATTEND Hospitalist